=== PATIENT | male | born 1965 | race Caucasian/White ===

== ENCOUNTER 2017-03-28 08:46 | Emergency (ER) | payer SELFPAY ==
[2017-03-28 08:51] VITALS: BMI 49.2
--- NOTE | 2017-03-28 09:23 | PDOC ---
History of Present Illness - General Chief Complaint: Lightheaded Stated Complaint: NAUSEA/vertigo History Source: Patient Exam Limitations: No Limitations - History of Present Illness Initial Comments: 03/28/17 09:14 52-year-old male with history of alcoholic cirrhosis, gastritis, and obesity with sedentary lifestyle presents with complaints of intermittent dizziness for the past 3 days. 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 Patient denies chest pain, shortness of breath, visual changes, headache, nausea or weakness with episodes. Patient denies history of vertigo, denies recent head injury, recent dental work, recent illness, recent surgery. Patient denies alcohol or drug use presently. Patient also denies change in sleep pattern or diet. Presenting Symptoms: Dizziness Timing/Duration: reports: intermittent, resolved prior to arrival Severity/Quality: reports: moderate Prior Chest Pain/Cardiac Workup: reports: No prior chest pain Associated Symptoms: Yes: Dizziness (intermittent) Past History - Past Medical History Allergies/Adverse Reactions: Allergies Allergy/AdvReac Type Severity Reaction Status Date / Time No Known Allergies Allergy Verified 03/28/17 08:46 Home Medications: Ambulatory Orders Folic Acid - 1 mg PO DAILY 03/28/17 GI Disorders: Yes (gastritis) Liver Disease: Yes (cirrhosis) - Suicide/Smoking/Psychosocial Hx Smoking History: Never smoked Hx Alcohol Use: No Drug/Substance Use Hx: No Substance Use Type: Alcohol Patient Lives Alone: No Lives with/in: spouse/SO Review of Systems - Review of Systems Able to Perform ROS?: Yes Constitutional: No: Symptoms Reported HEENTM: No: Symptoms Reported Respiratory: No: Symptoms reported Cardiac (ROS): Yes: Lightheadedness ABD/GI: No: Symptoms Reported : No: Symptoms Reported Musculoskeletal: No: Symptoms Reported Integumentary: No: Symptoms Reported Neurological: Yes: Dizziness Endocrine: No: Symptoms Reported Hematologic/Lymphatic: No: Symptoms Reported *Physical Exam - Vital Signs Last Vital Signs Temp Pulse Resp BP Pulse Ox 98.3 F 72 18 113/65 100 03/28/17 13:11 03/28/17 13:11 03/28/17 13:11 03/28/17 13:11 03/28/17 13:11 - Physical Exam General Appearance: Yes: Nourished. No: Appropriately Dressed, Apparent Distress HEENT: positive: EOMI, FABIEN, TMs Normal, Pharynx Normal. negative: Pale Conjunctivae Neck: positive: Supple Respiratory/Chest: positive: Lungs Clear, Normal Breath Sounds. negative: Respiratory Distress, Accessory Muscle Use Cardiovascular: positive: Regular Rhythm, Regular Rate. negative: Murmur Gastrointestinal/Abdominal: positive: Soft. negative: Tenderness Integumentary: positive: Normal Color, Warm, Moist Neurologic: positive: Motor Strength 5/5 (ambulatory), Other (negative Hallpike' s) Heart Score/ECG Review - History History: Slightly suspicious - Electrocardiogram EKG: Normal - Age Age: 45-65 - Risk Factors Risk Factors Heart Score: Yes Hx Obesity Based on the list above the patient has:: 1-2 risk factors - Troponin Troponin: </= normal limit - Score Heart Score - Total: 2 - ECG Intrepretation Rhythm: Regular Rhythm (rate 77. Normal sinus rhythm. Intervals are regular) ED Treatment Course - LABORATORY CBC & Chemistry Diagram: 03/28/17 09:20 03/28/17 09:20 - ADDITIONAL ORDERS Additional order review: Laboratory Results 03/28/17 03/28/17 12:46 09:20 Sodium 139 Potassium 3.9 Chloride 109 H Carbon Dioxide 25 Anion Gap 5 L BUN 10 Creatinine 0.5 L D Creat Clearance w eGFR > 60 Random Glucose 101 Calcium 7.7 L Total Bilirubin 2.0 H AST 81 H ALT 66 Alkaline Phosphatase 173 H Creatine Kinase 436 H Creatine Kinase Index 1.7 CK-MB (CK-2) 7.715 H Troponin I < 0.02 Total Protein 7.2 Albumin 2.4 L Urine Color Yellow Urine Appearance Clear Urine pH 5.0 Urine Protein Negative Urine Glucose (UA) Negative Urine Ketones Negative Urine Blood 1+ H Urine Nitrite Negative Urine Bilirubin Negative Urine Urobilinogen Negative Urine RBC None Urine WBC 1 Ur Epithelial Cells Rare 03/28/17 09:20 RBC 4.49 MCV 102.8 H MCHC 33.8 RDW 14.5 MPV 8.2 Neutrophils % 61.5 Lymphocytes % 27.1 Monocytes % 9.0 Eosinophils % 2.0 Basophils % 0.4 - RADIOLOGY Radiology Studies Ordered: Category Date Time Status HEAD CT WITHOUT CONTRAST [CT] Stat CT Scan 03/28/17 09:18 Completed CHEST X-RAY PORTABLE* [RAD] Stat Radiology 03/28/17 09:19 Completed Medical Decision Making - Medical Decision Making 03/28/17 09:28 Patient complains of episodic dizziness stating he felt as if the room is spinning. Patient on exam had no acute findings but does have history of cirrhosis and gastritis. Patient be ordered for labs to rule out anemia, infection, ACS, and intracranial pathology. Patient ordered for cardiac including a head CT. Patient offered meclizine to states is currently asymptomatic. 03/28/17 10:47 Laboratory Tests 02/01/16 02/01/16 11/25/16 17:12 17:12 08:10 WBC 5.3 4.2 MCV 102.5 H 104.9 H MCH Plt Count 59 L D Sodium Potassium Chloride Creatinine Calcium Total Bilirubin 1.2 H AST 97 H ALT Alkaline Phosphatase 224 H Creatine Kinase 11/25/16 03/28/17 03/28/17 08:10 09:20 09:20 WBC 3.9 L MCV 102.8 H MCH 34.8 H Plt Count 54 L Sodium 139 Potassium 3.9 Chloride 109 H Creatinine 0.5 L D Calcium 7.7 L Total Bilirubin 2.0 H D 2.0 H AST 71 H D 81 H ALT 66 Alkaline Phosphatase 156 H D 173 H Creatine Kinase 436 H 03/28/17 10:47 Laboratory Tests 03/28/17 09:20 Troponin I < 0.02 03/28/17 11:19 Patient states has the appointment with a liver specialist at [facility] on April 12 as per recommendations from Dr. Dumont. Patient states has never seen a facilities specialist. Call placed to Dr. Weber. 03/28/17 13:09 Called and spoke to the office of Dr. Khan and made appointment for 9:45 AM on April 11. patient and made aware and will discharge home with recommendations to avoid infection and germs. 03/28/17 13:17 Laboratory Tests 03/28/17 12:46 Urine Ketones Negative Urine Blood 1+ H Urine Nitrite Negative Urine Urobilinogen Negative Urine WBC 1 *DC/Admit/Observation/Transfer Diagnosis at time of Disposition: Dizziness, Thrombocytopenia - Discharge Dispostion Disposition: HOME Condition at time of disposition: Good - Referrals Referrals: Rosalina Gomez NP [Primary Care Provider] - - Patient Instructions Printed Discharge Instructions: Platelet Count, Immune Support (Alternative Therapy) Additional Instructions: I have scheduled you an appointment on April 11 at 9:[address] Khan. If you have any questions in regards to your appointment please call [phone] and speak to Eloisa at extension [phone]. Print Language: [place]
[2017-03-28 09:48] LABS: BASOPHIL 0.4 % (0-2.0); MCH 34.8 pg (25.7-33.7); MCHC 33.8 g/dl (32.0-35.9); MEAN CELL VOLUME 102.8 fl (80-96); MEAN PLT VOLUME 8.2 fl (7.5-11.1); NEUTROPHILS 61.5 % (42.8-82.8); PLATELET COUNT 54 K/MM3 (134-434); RDW 14.5 % (11.9-15.9); WHITE BLOOD COUNT 3.9 K/mm3 (4.0-10.0)
[2017-03-28 10:09] LABS: ALBUMIN 2.4 g/dl (3.4-5.0); ANION GAP 5 (8-16); CALCIUM 7.7 mg/dL (8.5-10.1); CO2 25 mmol/L (21-32); CREATININE 0.5 mg/dL (0.7-1.3); GLUCOSE,RANDOM 101 mg/dL (74-106); SGOT/AST 81 U/L (15-37); SGPT/ALT 66 U/L (12-78); TOT PROT 7.2 g/dl (6.4-8.2)
[2017-03-28 10:11] LABS: ALK PHOS 173 U/L (45-117); CPK 436 IU/L (39-308); TROPONIN I < 0.02 ng/ml (0.00-0.05)
--- NOTE | 2017-03-28 11:43 | PDOC ---
*Physical Exam - Vital Signs Last Vital Signs Temp Pulse Resp BP Pulse Ox 98.9 F 84 18 128/74 100 03/28/17 08:48 03/28/17 09:20 03/28/17 08:48 03/28/17 09:20 03/28/17 08:48 ED Treatment Course - LABORATORY CBC & Chemistry Diagram: 03/28/17 09:20 03/28/17 09:20 - ADDITIONAL ORDERS Additional order review: Laboratory Results 03/28/17 09:20 Sodium 139 Potassium 3.9 Chloride 109 H Carbon Dioxide 25 Anion Gap 5 L BUN 10 Creatinine 0.5 L D Creat Clearance w eGFR > 60 Random Glucose 101 Calcium 7.7 L Total Bilirubin 2.0 H AST 81 H ALT 66 Alkaline Phosphatase 173 H Creatine Kinase 436 H Creatine Kinase Index 1.7 CK-MB (CK-2) 7.715 H Troponin I < 0.02 Total Protein 7.2 Albumin 2.4 L 03/28/17 09:20 RBC 4.49 MCV 102.8 H MCHC 33.8 RDW 14.5 MPV 8.2 Neutrophils % 61.5 Lymphocytes % 27.1 Monocytes % 9.0 Eosinophils % 2.0 Basophils % 0.4 Medical Decision Making - Medical Decision Making 03/28/17 11:41 Patient seen and evaluated with the nurse practitioner. I agree with the overall evaluation, assessment, and management with the following summary of visit: 52-year-old male with history of cirrhosis presents with subacute/ongoing complaints of transient episodes of what he describes as dizziness, more specifically there appeared to be episodes of diplopia requiring refocusing No associated ataxia or speech or focal motor disturbance. Exam as noted Labs has noted gradually worsening leukopenia but no evidence of neutropenia, baseline thrombocytopenia, otherwise baseline chemistries. CT head shows no acute pathology We'll discuss with primary physician expedited outpatient workup. Understands return criteria. No evidence for central neurologic process at this time. *DC/Admit/Observation/Transfer Diagnosis at time of Disposition: Dizziness
[2017-03-28 12:53] LABS: URINE APPEARANCE CLEAR; URINE BILIRUBIN NEGATIVE (NEGATIVE); URINE BLOOD 1+ (NEGATIVE); URINE COLOR YELLOW; URINE GLUCOSE (UA) NEGATIVE (NEGATIVE); URINE KETONE NEGATIVE (NEGATIVE); URINE LEUK ESTERASE NEGATIVE (NEGATIVE); URINE NITRITE NEGATIVE (NEGATIVE); URINE PROTEIN NEGATIVE (NEGATIVE); URINE UROBILINOGEN NEGATIVE mg/dL (0.2-1.0)
[2017-03-28 13:09] LABS: URINE WBC 1 /hpf (3-5)
[2017-03-28 13:14] VITALS: BP 113/65; PULSE 72; TEMP 98.3
--- NOTE | 2017-03-28 20:46 | EKG ---
Test Reason : Blood Pressure : / mmHG Vent. Rate : 077 BPM Atrial Rate : 077 BPM P-R Int : 132 ms QRS Dur : 094 ms QT Int : 418 ms P-R-T Axes : 011 002 -02 degrees QTc Int : 473 ms NORMAL SINUS RHYTHM RIGHT ATRIAL ABNORMALITY WHEN COMPARED WITH ECG OF 27-JAN-2016 15:28, NO SIGNIFICANT CHANGE WAS FOUND CLINICAL CORRELATION IS RECOMMENDED Confirmed by CURTIS TERRY MD ([id number]) on 03/28/2017 8:45:56 PM Referred By: Confirmed By:CURTIS TERRY MD
== END 2017-03-28 13:38 | disposition home or self-care (01) ==
LOC: JER 08:46
DX: D69.6 Thrombocytopenia, unspecified (principal); K29.70 Gastritis, unspecified, without bleeding; K70.30 Alcoholic cirrhosis of liver without ascites
CPT/HCPCS: 36415; 70450-TC; 71010-TC; 80053; 81003; 81015; 82553; 84484; 85025; 93005; 93010; 99284-25

== ENCOUNTER 2020-06-26 09:49 | Inpatient (IN) | payer OTHER ==
[2020-06-26] MEDS ORDERED: SPIRONOLACTONE 25 MG TABLET PO ONE (11:09)
[2020-06-26 12:09] LABS: BASO % 0.9 % (0-2.0); EOS % 1.2 % (0-4.5); HEMATOCRIT 42.7 % (35.4-49); HEMOGLOBIN 14.4 GM/dL (11.7-16.9); MCH 35.1 pg (25.7-33.7); MCHC 33.7 g/dl (32.0-35.9); MEAN CELL VOLUME 104.1 fl (80-96); MEAN PLT VOLUME 8.3 fl (7.5-11.1); MONO % 12.4 % (3.8-10.2); NEUT % 67.5 % (42.8-82.8); PLATELET COUNT 58 K/MM3 (134-434); RDW 13.7 % (11.9-15.9); WHITE BLOOD COUNT 4.8 K/mm3 (4.0-10.0)
[2020-06-26 12:26] LABS: ALBUMIN 2.2 g/dl (3.4-5.0); CALCIUM 7.4 mg/dL (8.5-10.1)
[2020-06-26 12:27] LABS: BLOOD UREA NITROGEN 10.4 mg/dL (7-18)
[2020-06-26 12:30] LABS: CREATININE 0.7 mg/dL (0.55-1.3)
[2020-06-26 12:31] LABS: BILIRUBIN,TOTAL 2.4 mg/dL (0.2-1); TOT PROT 6.1 g/dl (6.4-8.2)
[2020-06-26 12:34] LABS: N-TERMINAL BNP 77.9 pg/ml (5-125)
[2020-06-26] MEDS ORDERED: SPIRONOLACTONE 25 MG TABLET ONE (12:34)
[2020-06-26] MEDS ORDERED: LIDOCAINE HCL 2% (20ML MULTI-DOSE VIAL) ONE (14:31)
[2020-06-26 18:29] LABS: PH,URINE 7.5 (5.0-8.0); URINE APPEARANCE CLEAR; URINE BILIRUBIN NEGATIVE (NEGATIVE); URINE COLOR YELLOW; URINE GLUCOSE (UA) NEGATIVE (NEGATIVE); URINE KETONE TRACE (NEGATIVE); URINE LEUK ESTERASE NEGATIVE (NEGATIVE); URINE NITRITE NEGATIVE (NEGATIVE); URINE PROTEIN NEGATIVE (NEGATIVE)
[2020-06-26 19:22] LABS: BF WBC & OTHER NUCLEATED CELLS 283 /mm3
[2020-06-26 21:00] LABS: BODY FLUID MESOTHELIAL 2 %; BODY FLUID MONOCYTE 35 %
[2020-06-27 09:07] LABS: BASO % 0.2 % (0-2.0); EOS % 1.1 % (0-4.5); HEMATOCRIT 44.1 % (35.4-49); LYMPH % 17.3 % (8-40); MCH 35.3 pg (25.7-33.7); MEAN CELL VOLUME 103.9 fl (80-96); MEAN PLT VOLUME 8.3 fl (7.5-11.1); MONO % 10.5 % (3.8-10.2); NEUT % 70.9 % (42.8-82.8); PLATELET COUNT 60 K/MM3 (134-434); RBC 4.24 M/mm3 (4.00-5.60); RDW 14.2 % (11.9-15.9); WHITE BLOOD COUNT 4.3 K/mm3 (4.0-10.0)
[2020-06-27 09:15] LABS: ACTIVATED PTT 47.6 SECONDS (25.2-36.5)
[2020-06-27 09:16] LABS: INR 1.94 (0.83-1.09); PROTHROMBIN TIME (PATIENT) 23.4 SEC (9.7-13.0)
[2020-06-27] MEDS: SPIRONOLACTONE 25 MG TABLET PO SCH (09:34)
[2020-06-27] MEDS: THIAMINE HCL 200 MG/2 ML VIAL IM SCH (09:35)
[2020-06-27] MEDS: FUROSEMIDE 40 MG/4 ML INJECTABLE VIAL IVPUSH SCH (09:35)
[2020-06-27 09:40] LABS: POTASSIUM 3.8 mmol/L (3.5-5.1)
[2020-06-27 09:48] LABS: PHOSPHOROUS 3.3 mg/dL (2.5-4.9)
[2020-06-27 09:52] LABS: ALBUMIN 2.4 g/dl (3.4-5.0); BILIRUBIN,TOTAL 3.1 mg/dL (0.2-1); CALCIUM 7.8 mg/dL (8.5-10.1); MAGNESIUM 1.5 mg/dL (1.8-2.4); TOT PROT 6.3 g/dl (6.4-8.2)
[2020-06-27 09:55] LABS: CREATININE 0.6 mg/dL (0.55-1.3)
[2020-06-27] MEDS: RIFAXIMIN 550 MG TABLET (UD) PO SCH ×2 (13:58→21:43)
[2020-06-27] MEDS ORDERED: MAGNESIUM SULF 50% (8.12 MEQ/2 ML-1 GM VIAL) IVPB ONE (14:47)
[2020-06-27] MEDS: SILVER SULFADIAZINE 1% TOP CREAM 50 GM JAR TP SCH (18:38)
[2020-06-28 09:09] LABS: BASO % 0.3 % (0-2.0); EOS % 1.2 % (0-4.5); HEMATOCRIT 42.7 % (35.4-49); HEMOGLOBIN 14.1 GM/dL (11.7-16.9); LYMPH % 16.1 % (8-40); MCH 34.5 pg (25.7-33.7); MCHC 33.2 g/dl (32.0-35.9); MEAN CELL VOLUME 104.1 fl (80-96); MEAN PLT VOLUME 8.9 fl (7.5-11.1); MONO % 12.4 % (3.8-10.2); PLATELET COUNT 58 K/MM3 (134-434); RDW 13.8 % (11.9-15.9); WHITE BLOOD COUNT 4.4 K/mm3 (4.0-10.0)
[2020-06-28 09:13] LABS: INR 2.03 (0.83-1.09); PROTHROMBIN TIME (PATIENT) 24.1 SEC (9.7-13.0)
[2020-06-28] MEDS: FUROSEMIDE 40 MG/4 ML INJECTABLE VIAL IVPUSH SCH (09:26)
[2020-06-28] MEDS: THIAMINE HCL 200 MG/2 ML VIAL IM SCH (09:27)
[2020-06-28] MEDS: SPIRONOLACTONE 25 MG TABLET PO SCH (09:27)
[2020-06-28] MEDS: SILVER SULFADIAZINE 1% TOP CREAM 50 GM JAR TP SCH (09:27)
[2020-06-28] MEDS: RIFAXIMIN 550 MG TABLET (UD) PO SCH ×2 (09:27→21:29)
[2020-06-28 09:47] LABS: ALBUMIN 2.2 g/dl (3.4-5.0); BILIRUBIN,TOTAL 2.6 mg/dL (0.2-1); BLOOD UREA NITROGEN 12.2 mg/dL (7-18); CALCIUM 7.7 mg/dL (8.5-10.1); CREATININE 0.6 mg/dL (0.55-1.3); MAGNESIUM 1.6 mg/dL (1.8-2.4); PHOSPHOROUS 3.2 mg/dL (2.5-4.9); POTASSIUM 3.7 mmol/L (3.5-5.1); TOT PROT 5.8 g/dl (6.4-8.2)
[2020-06-28] MEDS ORDERED: MAGNESIUM SULF 50% (8.12 MEQ/2 ML-1 GM VIAL) IVPB ONE (12:47)
[2020-06-28] MEDS ORDERED: PHYTONADIONE 5 MG TABLET PO ONE (14:15)
[2020-06-28] MEDS ORDERED: PT OWN MED DRAWER 7, Y5N ONE ×2 (14:51→16:50)
[2020-06-29] MEDS ORDERED: PT OWN MED DRAWER 7, Y5N ONE (05:29)
[2020-06-29] MEDS ORDERED: PHYTONADIONE 5 MG TABLET PO ONE (07:00)
[2020-06-29 07:51] LABS: BASO % 0.4 % (0-2.0); EOS % 1.2 % (0-4.5); HEMATOCRIT 42.6 % (35.4-49); HEMOGLOBIN 14.5 GM/dL (11.7-16.9); LYMPH % 16.8 % (8-40); MCH 35.3 pg (25.7-33.7); MCHC 34.1 g/dl (32.0-35.9); MEAN CELL VOLUME 103.4 fl (80-96); MEAN PLT VOLUME 7.8 fl (7.5-11.1); MONO % 12.3 % (3.8-10.2); NEUT % 69.3 % (42.8-82.8); PLATELET COUNT 57 K/MM3 (134-434); RBC 4.12 M/mm3 (4.00-5.60); RDW 13.7 % (11.9-15.9); WHITE BLOOD COUNT 5.3 K/mm3 (4.0-10.0)
[2020-06-29 08:09] LABS: POTASSIUM 3.8 mmol/L (3.5-5.1)
[2020-06-29 08:16] LABS: ALBUMIN 2.2 g/dl (3.4-5.0); CALCIUM 7.5 mg/dL (8.5-10.1)
[2020-06-29 08:17] LABS: BLOOD UREA NITROGEN 13.5 mg/dL (7-18); MAGNESIUM 1.8 mg/dL (1.8-2.4)
[2020-06-29 08:20] LABS: CREATININE 0.6 mg/dL (0.55-1.3)
[2020-06-29 08:21] LABS: BILIRUBIN,TOTAL 2.2 mg/dL (0.2-1)
[2020-06-29 08:22] LABS: TOT PROT 5.8 g/dl (6.4-8.2)
[2020-06-29] MEDS ORDERED: MAGNESIUM SULF 50% (8.12 MEQ/2 ML-1 GM VIAL) IVPB ONE (08:30)
[2020-06-29 08:38] LABS: INR 1.91 (0.83-1.09)
[2020-06-29] MEDS: RIFAXIMIN 550 MG TABLET (UD) PO SCH ×2 (10:01→21:51)
[2020-06-29] MEDS: SILVER SULFADIAZINE 1% TOP CREAM 50 GM JAR TP SCH (10:02)
[2020-06-29] MEDS: THIAMINE HCL 100 MG TABLET (FP) PO SCH (10:02)
[2020-06-29] MEDS: SPIRONOLACTONE 25 MG TABLET PO SCH (10:02)
[2020-06-29] MEDS: FUROSEMIDE 40 MG/4 ML INJECTABLE VIAL IVPUSH SCH (10:02)
[2020-06-29 16:26] VITALS: BMI 50.1
[2020-06-29 17:55] LABS: HEMOGLOBIN 14.9 GM/dL (11.7-16.9); MCHC 33.9 g/dl (32.0-35.9); MEAN CELL VOLUME 103.3 fl (80-96); PLATELET COUNT 56 K/MM3 (134-434); RBC 4.26 M/mm3 (4.00-5.60); RDW 13.9 % (11.9-15.9); WHITE BLOOD COUNT 5.7 K/mm3 (4.0-10.0)
[2020-06-29 18:11] LABS: INR 1.72 (0.83-1.09); PROTHROMBIN TIME (PATIENT) 20.8 SEC (9.7-13.0)
[2020-06-30 08:31] LABS: HEMATOCRIT 42.6 % (35.4-49); HEMOGLOBIN 14.2 GM/dL (11.7-16.9); MCH 34.9 pg (25.7-33.7); MCHC 33.4 g/dl (32.0-35.9); MEAN CELL VOLUME 104.3 fl (80-96); MEAN PLT VOLUME 8.1 fl (7.5-11.1); PLATELET COUNT 49 K/MM3 (134-434); RBC 4.08 M/mm3 (4.00-5.60); RDW 13.7 % (11.9-15.9); WHITE BLOOD COUNT 4.7 K/mm3 (4.0-10.0)
[2020-06-30 08:35] LABS: INR 1.94 (0.83-1.09)
[2020-06-30 08:52] LABS: POTASSIUM 4.2 mmol/L (3.5-5.1)
[2020-06-30 09:00] LABS: BLOOD UREA NITROGEN 12.3 mg/dL (7-18); CALCIUM 7.4 mg/dL (8.5-10.1); MAGNESIUM 1.6 mg/dL (1.8-2.4)
[2020-06-30 09:03] LABS: CREATININE 0.6 mg/dL (0.55-1.3); PHOSPHOROUS 3.6 mg/dL (2.5-4.9)
[2020-06-30 09:04] LABS: BILIRUBIN,TOTAL 3.3 mg/dL (0.2-1); TOT PROT 5.4 g/dl (6.4-8.2)
[2020-06-30] MEDS: FUROSEMIDE 40 MG TABLET (FP) PO SCH (09:15)
[2020-06-30] MEDS: THIAMINE HCL 100 MG TABLET (FP) PO SCH (09:17)
[2020-06-30] MEDS: SPIRONOLACTONE 25 MG TABLET PO SCH (09:17)
[2020-06-30] MEDS: RIFAXIMIN 550 MG TABLET (UD) PO SCH ×2 (09:17→21:50)
[2020-06-30] MEDS: SILVER SULFADIAZINE 1% TOP CREAM 50 GM JAR TP SCH (09:18)
[2020-06-30] MEDS ORDERED: MAGNESIUM SULF 50% (8.12 MEQ/2 ML-1 GM VIAL) IVPB ONE ×2 (11:50→13:31)
[2020-06-30] MEDS ORDERED: MAGNESIUM SULFATE IN WATER 2 GM/50 ML IVPB IVPB ONE ×2 (12:00→13:45)
[2020-06-30 12:47] LABS: BF WBC & OTHER NUCLEATED CELLS 348 /mm3
[2020-06-30 12:56] LABS: BODY FLUID MACROPHAGES 18 %; BODY FLUID MESOTHELIAL 20 %; BODY FLUID MONOCYTE 11 %
[2020-06-30 14:07] LABS: BODY FLUID ALBUMIN 0.3 g/dL (Not Estab.)
[2020-06-30] MEDS ORDERED: cefTRIAXone SODIUM 1 GM VIAL ONE (19:06)
[2020-06-30] MEDS ORDERED: DEXTROSE 5%-WATER - 50 ML IVPB ONE (19:06)
[2020-06-30] MEDS: CEFTRIAXONE 1 GM in DEXTROSE 5%-WATER - 50 ML IVPB SCH (19:08)
[2020-07-01] MEDS ORDERED: DEXTROSE 5%-WATER - 50 ML IVPB ONE (08:47)
[2020-07-01] MEDS ORDERED: cefTRIAXone SODIUM 1 GM VIAL ONE (08:47)
[2020-07-01 08:50] LABS: HEMOGLOBIN 15.4 GM/dL (11.7-16.9); MCHC 33.5 g/dl (32.0-35.9); MEAN CELL VOLUME 104.6 fl (80-96); MEAN PLT VOLUME 8.2 fl (7.5-11.1); PLATELET COUNT 56 K/MM3 (134-434); WHITE BLOOD COUNT 4.8 K/mm3 (4.0-10.0)
[2020-07-01] MEDS: CEFTRIAXONE 1 GM in DEXTROSE 5%-WATER - 50 ML IVPB SCH (09:12)
[2020-07-01] MEDS: FUROSEMIDE 40 MG TABLET (FP) PO SCH (09:12)
[2020-07-01] MEDS: SPIRONOLACTONE 25 MG TABLET PO SCH (09:12)
[2020-07-01] MEDS: RIFAXIMIN 550 MG TABLET (UD) PO SCH ×2 (09:12→21:22)
[2020-07-01] MEDS: THIAMINE HCL 100 MG TABLET (FP) PO SCH (09:12)
[2020-07-01] MEDS: SILVER SULFADIAZINE 1% TOP CREAM 50 GM JAR TP SCH (09:13)
[2020-07-01 09:14] LABS: POTASSIUM 3.7 mmol/L (3.5-5.1)
[2020-07-01 09:16] LABS: ALBUMIN 2.2 g/dl (3.4-5.0); CALCIUM 7.8 mg/dL (8.5-10.1)
[2020-07-01 09:17] LABS: BLOOD UREA NITROGEN 11.6 mg/dL (7-18); MAGNESIUM 1.7 mg/dL (1.8-2.4)
[2020-07-01 09:20] LABS: CREATININE 0.6 mg/dL (0.55-1.3); PHOSPHOROUS 3.9 mg/dL (2.5-4.9)
[2020-07-01 09:21] LABS: BILIRUBIN,TOTAL 2.1 mg/dL (0.2-1); TOT PROT 5.9 g/dl (6.4-8.2)
[2020-07-01] MEDS ORDERED: MAGNESIUM 2GM/50ML STERILE WATER IVPB IVPB ONE (12:00)
[2020-07-01 13:07] LABS: BODY FLUID ALBUMIN <0.2 g/dL (Not Estab.)
[2020-07-01] MEDS ORDERED: METOLAZONE 2.5 MG TABLET (FP) PO SCH (14:15)
[2020-07-01] MEDS ORDERED: PT OWN MED DRAWER 7, Y5N ONE (16:06)
[2020-07-01] MEDS ORDERED: ALBUMIN HUMAN 25% 100 ML VIAL IVPB SCH (20:00)
[2020-07-01] MEDS ORDERED: FUROSEMIDE 40 MG/4 ML INJECTABLE VIAL IVPUSH SCH (21:00)
[2020-07-01 23:11] VITALS: BP 122/73; PULSE 92; TEMP 98.7
== END 2020-07-02 00:05 | disposition short-term general hospital (02) | DRG 264 ==
LOC: JER 09:49 → JERBED 16:12 → J8W 06-27 00:30
PROVIDERS: ADMIT Internal Medicine; ATTEND Internal Medicine
PROC: 0W9G3ZX Drainage of Peritoneal Cavity, Percutaneous Approach, Diagnostic (ICD-10-PCS; principal; 2020-06-29)
PROC: 0W9G3ZX Drainage of Peritoneal Cavity, Percutaneous Approach, Diagnostic (ICD-10-PCS; 2020-06-29)
PROC: 30233K1 Transfusion of Nonautologous Frozen Plasma into Peripheral Vein, Percutaneous Approach (ICD-10-PCS; 2020-06-29)
DX: K70.31 Alcoholic cirrhosis of liver with ascites (principal); E11.9 Type 2 diabetes mellitus without complications; E66.01 Morbid (severe) obesity due to excess calories; Z68.42 Body mass index [BMI] 45.0-49.9, adult; R74.01 Elevation of levels of liver transaminase levels; E83.42 Hypomagnesemia; D69.6 Thrombocytopenia, unspecified; F17.210 Nicotine dependence, cigarettes, uncomplicated; S81.802A Unspecified open wound, left lower leg, initial encounter; I89.8 Other specified noninfective disorders of lymphatic vessels and lymph nodes
CPT/HCPCS: 36415; 36430; 71045-TC-FY; 74018-TC-FY; 76700-TC; 76942-TC; 80053; 81003; 82042; 82150; 82465; 82945; 83615; 83735; 83880; 83986; 84100; 84157; 84478; 85025; 85027; 85610; 85730; 86850; 86900; 86901; 87070; 87075; 87086; 87102; 87116; 87205; 87206; 87210; 88108; 88305-TC; 93005; 93010; 99285-25; C9803; P9017; U0003

== ENCOUNTER 2021-01-31 09:48 | Emergency (ER) | payer OTHER ==
[2021-01-31 09:57] VITALS: BMI 38.7
[2021-01-31] MEDS ORDERED: DALBAVANCIN HCL 1,500 MG in DEXTROSE 5%-WATER - 500 ML IVPB ONE (10:26)
[2021-01-31] MEDS ORDERED: BACITRACIN 15 GM TUBE TOPICAL OINTMENT ONE (10:28)
[2021-01-31] MEDS ORDERED: BACITRACIN 15 GM TUBE TOPICAL OINTMENT TP ONE (10:40)
[2021-01-31] MEDS ORDERED: DALBAVANCIN HCL 500 MG VIAL (RESTRICTED TO ID ONLY) IVPB ONE (11:02)
[2021-01-31 11:16] LABS: BASO % 0.5 % (0-2.0); EOS % 0.9 % (0-4.5); HEMATOCRIT 45.4 % (35.4-49); HEMOGLOBIN 15.6 GM/dL (11.7-16.9); LYMPH % 22.5 % (8-40); MCH 35.8 pg (25.7-33.7); MCHC 34.3 g/dl (32.0-35.9); MEAN CELL VOLUME 104.2 fl (80-96); MEAN PLT VOLUME 7.7 fl (7.5-11.1); MONO % 9.7 % (3.8-10.2); NEUT % 66.4 % (42.8-82.8); PLATELET COUNT 59 10^3/uL (134-434); RBC 4.36 M/mm3 (4.00-5.60); RDW 13.8 % (11.9-15.9); WHITE BLOOD COUNT 3.3 K/mm3 (4.0-10.0)
[2021-01-31 11:21] LABS: ALBUMIN 2.8 g/dl (3.4-5.0); BLOOD UREA NITROGEN 14.4 mg/dL (7-18); CALCIUM 8.2 mg/dL (8.5-10.1)
[2021-01-31 11:25] LABS: CREATININE 0.6 mg/dL (0.55-1.3)
[2021-01-31 11:26] LABS: BILIRUBIN,TOTAL 2.2 mg/dL (0.2-1); TOT PROT 6.8 g/dl (6.4-8.2)
[2021-01-31 12:30] VITALS: BP 113/61; PULSE 68; TEMP 98
== END 2021-01-31 12:15 | disposition home or self-care (01) ==
LOC: JER 09:48
DX: S81.801A Unspecified open wound, right lower leg, initial encounter (principal); L03.115 Cellulitis of right lower limb
CPT/HCPCS: 36415; 80053; 85025; 99284-25; J0875

== ENCOUNTER 2021-03-31 18:06 | Emergency (ER) | payer OTHER ==
[2021-03-31 18:16] VITALS: BP 125/76; PULSE 105; TEMP 99.7; BMI 39.2
== END 2021-03-31 21:00 | disposition left against medical advice (07) ==
LOC: JER 18:06
DX: R31.9 Hematuria, unspecified (principal)
CPT/HCPCS: 99283-25

== ENCOUNTER 2021-04-01 09:42 | Emergency (ER) | payer OTHER ==
[2021-04-01 10:18] VITALS: TEMP 98.6; BMI 39.1
[2021-04-01 12:08] LABS: BASO % 0.2 % (0-2.0); EOS % 0.1 % (0-4.5); HEMATOCRIT 41.4 % (35.4-49); HEMOGLOBIN 14.3 GM/dL (11.7-16.9); MCH 36.2 pg (25.7-33.7); MCHC 34.6 g/dl (32.0-35.9); MEAN CELL VOLUME 104.8 fl (80-96); MEAN PLT VOLUME 8.4 fl (7.5-11.1); MONO % 8.6 % (3.8-10.2); NEUT % 84.1 % (42.8-82.8); RBC 3.95 M/mm3 (4.00-5.60); RDW 13.7 % (11.9-15.9); WHITE BLOOD COUNT 9.8 K/mm3 (4.0-10.0)
[2021-04-01 12:11] LABS: PLATELET COUNT 41 10^3/uL (134-434)
[2021-04-01 12:18] LABS: INR 1.98 (0.83-1.09); PROTHROMBIN TIME (PATIENT) 24.5 SEC (9.7-13.0)
[2021-04-01 12:21] LABS: ACTIVATED PTT 40.6 SECONDS (25.2-36.5)
[2021-04-01 12:24] LABS: EPI CELLS 5 /uL (0-25.1); HYALINE CASTS 4 /uL (0-3.1); PH,URINE 5.5 (5.0-8.0); URINE APPEARANCE TURBID; URINE BACTERIA >9,000 /uL (0-1359); URINE BILIRUBIN 2+ (NEGATIVE); URINE COLOR ORANGE; URINE GLUCOSE (UA) NEGATIVE (NEGATIVE); URINE KETONE NEGATIVE (NEGATIVE); URINE LEUK ESTERASE 3+ (NEGATIVE); URINE NITRITE POSITIVE (NEGATIVE); URINE PROTEIN 2+ (NEGATIVE); URINE WBC 2921 /uL (0-25.8)
[2021-04-01 12:35] LABS: CHLORIDE 103 mmol/L (98-107); SODIUM 134 mmol/L (136-145)
[2021-04-01 12:37] LABS: CALCIUM 7.8 mg/dL (8.5-10.1)
[2021-04-01 12:38] LABS: ALBUMIN 2.3 g/dl (3.4-5.0); ANION GAP 5 MMOL/L (8-16); BLOOD UREA NITROGEN 20.1 mg/dL (7-18); CO2 26 mmol/L (21-32); GLUCOSE,RANDOM 97 mg/dL (74-106)
[2021-04-01 12:41] LABS: CREATININE 0.8 mg/dL (0.55-1.3); SGOT/AST 50 U/L (15-37); SGPT/ALT 39 U/L (13-61)
[2021-04-01 12:42] LABS: BILIRUBIN,TOTAL 3.2 mg/dL (0.2-1)
[2021-04-01 12:44] LABS: ALK PHOS 125 U/L (45-117)
[2021-04-01] MEDS ORDERED: CEFTRIAXONE 1,000 MG in DEXTROSE 5%-WATER - 50 ML IVPB ONE (13:07)
[2021-04-01] MEDS ORDERED: CEFTRIAXONE 1 GM/50 ML BAG ONE (13:42)
[2021-04-01 13:45] LABS: URINE RBC 383 /uL (0-23.9); YEAST NEGATIVE (NEGATIVE)
[2021-04-01 14:59] VITALS: BP 101/62; PULSE 90
== END 2021-04-01 14:59 | disposition home or self-care (01) ==
LOC: JER 09:42
DX: R31.0 Gross hematuria (principal)
CPT/HCPCS: 36415; 80053; 81003; 82550; 82553; 84484; 85025; 85610; 85730; 86850; 86900; 86901; 87086; 87186; 93005; 93010; 99284-25

== ENCOUNTER 2021-10-30 09:06 | Emergency (ER) | payer OTHER ==
[2021-10-30 09:21] VITALS: BP 103/65; PULSE 82; TEMP 97.7; BMI 39.7
[2021-10-30] MEDS ORDERED: BACITRACIN 15 GM TUBE TOPICAL OINTMENT TP SCH (10:15)
== END 2021-10-30 11:07 | disposition home or self-care (01) ==
LOC: JERFT 09:06
DX: S80.811A Abrasion, right lower leg, initial encounter (principal); Y99.9 Unspecified external cause status
CPT/HCPCS: 99282-25

== ENCOUNTER 2022-11-29 22:08 | Emergency (ER) | payer OTHER ==
[2022-11-29 22:18] VITALS: BP 125/79; PULSE 108; RESP 18; TEMP 98.3; BMI 38.9
== END 2022-11-30 | disposition left against medical advice (07) ==
LOC: JER 22:08
DX: R53.1 Weakness (principal); R53.83 Other fatigue
CPT/HCPCS: 99281-25

== ENCOUNTER 2023-07-03 19:02 | Inpatient (IN) | payer OTHER ==
[2023-07-03 20:00] LABS: BASO % 0.5 % (0-2.0); EOS % 0.3 % (0-4.5); HEMATOCRIT 42.3 % (35.4-49); HEMOGLOBIN 14.9 GM/dL (11.7-16.9); LYMPH % 5.8 % (8-40); MCH 36.3 pg (25.7-33.7); MCHC 35.1 g/dl (32.0-35.9); MEAN CELL VOLUME 103.3 fl (80-96); MONO % 8.6 % (3.8-10.2); NEUT % 84.8 % (42.8-82.8); PLATELET COUNT 49 10^3/uL (134-434); RDW 15.4 % (11.9-15.9); WHITE BLOOD COUNT 6.1 K/mm3 (4.0-10.0)
[2023-07-03 20:06] LABS: INR 2.11 (0.83-1.09); PROTHROMBIN TIME (PATIENT) 24.3 SEC (9.7-13.0)
[2023-07-03 20:09] LABS: ACTIVATED PTT 40.6 SECONDS (25.2-36.5)
[2023-07-03 20:31] LABS: POTASSIUM 3.1 mmol/L (3.5-5.1)
[2023-07-03 20:32] LABS: CALCIUM 8.2 mg/dL (8.5-10.1)
[2023-07-03 20:33] LABS: ALBUMIN 2.3 g/dl (3.4-5.0); BLOOD UREA NITROGEN 17.8 mg/dL (7-18)
[2023-07-03 20:38] LABS: TOT PROT 7.4 g/dl (6.4-8.2)
[2023-07-03 20:51] LABS: URINE APPEARANCE CLEAR; URINE COLOR YELLOW
[2023-07-03 20:52] LABS: URINE BILIRUBIN NEGATIVE (NEGATIVE); URINE GLUCOSE (UA) NEGATIVE (NEGATIVE); URINE KETONE NEGATIVE (NEGATIVE); URINE NITRITE NEGATIVE (NEGATIVE); URINE PROTEIN NEGATIVE (NEGATIVE)
[2023-07-03 20:53] LABS: URINE LEUK ESTERASE NEGATIVE (NEGATIVE); URINE RBC 15-20 /uL (0-23.9); URINE WBC 0-3 /uL (0-25.8)
[2023-07-03 20:54] LABS: URINE BACTERIA NONE SEEN /uL (0-1359)
[2023-07-03 20:54] LABS: CREATININE 1.1 mg/dL (0.55-1.3)
[2023-07-03] MEDS ORDERED: LACTULOSE 20 GM/30 ML UDC (FOR ORAL USE ONLY) ONE (21:44)
[2023-07-03] MEDS ORDERED: POTASSIUM CHLORIDE ORAL LIQUID 20 MEQ/15 ML ONE (21:45)
[2023-07-03] MEDS: POTASSIUM CHLORIDE ORAL LIQUID 20 MEQ/15 ML PO ONE (21:47)
[2023-07-03] MEDS: LACTULOSE 20 GM/30 ML UDC (FOR ORAL USE ONLY) PO ONE (21:47)
[2023-07-03 23:20] LABS: MAGNESIUM 1.3 mg/dL (1.8-2.4)
[2023-07-03 23:24] LABS: PHOSPHOROUS 2.3 mg/dL (2.5-4.9)
[2023-07-03] MEDS ORDERED: MAGNESIUM SULFATE IN WATER 2 GM/50 ML IVPB IVPB ONE (23:35)
[2023-07-03] MEDS: MAGNESIUM SULF 50% (8.12 MEQ/2 ML-1 GM VIAL) IVPB ONE (23:41)
[2023-07-03] MEDS ORDERED: LACTULOSE 20 GM/30 ML UDC (FOR RECTAL USE ONLY) PR SCH (23:45)
[2023-07-03] MEDS ORDERED: LACTULOSE 20 GM/30 ML UDC (FOR ORAL USE ONLY) PO SCH (23:56)
[2023-07-04 02:49] LABS: PHENCYCLIDINE,URINE NEGATIVE (NEGATIVE); URINE BENZODIAZEPINES NEGATIVE (NEGATIVE)
[2023-07-04 02:50] LABS: METHADONE, UR NEGATIVE (NEGATIVE); OPIATES, URI NEGATIVE (NEGATIVE); URINE BARBITURATES NEGATIVE (NEGATIVE)
[2023-07-04 02:53] LABS: COCAINE, UR POSITIVE (NEGATIVE); URINE AMPHETAMINES NEGATIVE (NEGATIVE)
[2023-07-04] MEDS: LACTULOSE 20 GM/30 ML UDC (FOR RECTAL USE ONLY) PR ONE ×2 (04:17→13:41)
[2023-07-04 08:32] LABS: BASO % 0.6 % (0-2.0); EOS % 0.5 % (0-4.5); HEMATOCRIT 39.9 % (35.4-49); HEMOGLOBIN 13.7 GM/dL (11.7-16.9); MCH 35.7 pg (25.7-33.7); MCHC 34.4 g/dl (32.0-35.9); MEAN CELL VOLUME 103.7 fl (80-96); MEAN PLT VOLUME 7.2 fl (7.5-11.1); MONO % 15.6 % (3.8-10.2); NEUT % 67.3 % (42.8-82.8); PLATELET COUNT 46 10^3/uL (134-434); RBC 3.84 M/mm3 (4.00-5.60); RDW 15.5 % (11.9-15.9)
[2023-07-04 08:35] LABS: INR 2.18 (0.83-1.09); PROTHROMBIN TIME (PATIENT) 25.1 SEC (9.7-13.0)
[2023-07-04 09:00] LABS: MAGNESIUM 1.5 mg/dL (1.8-2.4)
[2023-07-04 09:03] LABS: PHOSPHOROUS 3.2 mg/dL (2.5-4.9)
[2023-07-04] MEDS ORDERED: LACTULOSE 20 GM/30 ML UDC (FOR ORAL USE ONLY) PO SCH (10:00)
[2023-07-04] MEDS ORDERED: PHYTONADIONE 5 MG TABLET PO SCH (10:00)
[2023-07-04] MEDS: LACTULOSE 20 GM/30 ML UDC (FOR ORAL USE ONLY) PO SCH ×2 (10:11→22:00)
[2023-07-04] MEDS: PANTOPRAZOLE 40 MG TABLET PO SCH (10:12)
[2023-07-04] MEDS: FUROSEMIDE 40 MG TABLET (FP) PO SCH (10:12)
[2023-07-04] MEDS: TAMSULOSIN HCL 0.4 MG CAP PO SCH (10:12)
[2023-07-04] MEDS: PHYTONADIONE 5 MG TABLET PO SCH (11:19)
[2023-07-04] MEDS: METOLAZONE 2.5 MG TABLET (FP) PO SCH (11:19)
[2023-07-04] MEDS: SPIRONOLACTONE 25 MG TABLET PO SCH (11:20)
[2023-07-04] MEDS: RIFAXIMIN 550 MG TABLET PO SCH (11:44)
[2023-07-04] MEDS: CEFTRIAXONE 1 GM in DEXTROSE 5%-WATER - 50 ML IVPB SCH (15:14)
[2023-07-04] MEDS: MAGNESIUM SULFATE IN WATER 2 GM/50 ML IVPB IVPB ONE (16:34)
[2023-07-04 16:55] LABS: POTASSIUM 3.1 mmol/L (3.5-5.1)
[2023-07-04 16:56] LABS: CALCIUM 8.7 mg/dL (8.5-10.1)
[2023-07-04 16:57] LABS: BLOOD UREA NITROGEN 15.2 mg/dL (7-18)
[2023-07-04] MEDS: POTASSIUM CHLORIDE ORAL LIQUID 20 MEQ/15 ML PO ONE (22:13)
[2023-07-05 10:52] LABS: ALBUMIN 2.2 g/dl (3.4-5.0); BILIRUBIN,DIRECT 0.8 mg/dL (0.0-0.2); BILIRUBIN,TOTAL 1.8 mg/dL (0.2-1); BLOOD UREA NITROGEN 17.1 mg/dL (7-18); CALCIUM 8.2 mg/dL (8.5-10.1); CREATININE 0.9 mg/dL (0.55-1.3); MAGNESIUM 1.5 mg/dL (1.8-2.4); TOT PROT 7.4 g/dl (6.4-8.2)
[2023-07-05] MEDS: KCL 10 MEQ IVPB 10 MEQ/100 ML INFUS.BAG IVPB SCH (11:51)
[2023-07-05] MEDS: MAGNESIUM 2GM/50ML STERILE WATER IVPB IVPB ONE (15:58)
[2023-07-05] MEDS: SPIRONOLACTONE 25 MG TABLET PO SCH (21:32)
[2023-07-06 07:42] LABS: HEMATOCRIT 42.1 % (35.4-49); HEMOGLOBIN 14.7 GM/dL (11.7-16.9); MCH 35.8 pg (25.7-33.7); MEAN CELL VOLUME 102.5 fl (80-96); MEAN PLT VOLUME 7.4 fl (7.5-11.1); PLATELET COUNT 51 10^3/uL (134-434); RDW 15.3 % (11.9-15.9); WHITE BLOOD COUNT 4.4 K/mm3 (4.0-10.0)
[2023-07-06 08:19] LABS: CHLORIDE 91 mmol/L (98-107); SODIUM 129 mmol/L (136-145)
[2023-07-06 08:42] LABS: ALBUMIN 2.2 g/dl (3.4-5.0); BLOOD UREA NITROGEN 20.1 mg/dL (7-18); CO2 28 mmol/L (21-32); CREATININE 0.9 mg/dL (0.55-1.3); GLUCOSE,RANDOM 115 mg/dL (74-106); SGOT/AST 50 U/L (15-37)
[2023-07-06 08:43] LABS: ALK PHOS 150 U/L (45-117); TOT PROT 7.1 g/dl (6.4-8.2)
[2023-07-06 08:44] LABS: ANION GAP 10 mmol/L (4-13); BILIRUBIN,TOTAL 1.6 mg/dL (0.2-1); CALCIUM 8.2 mg/dL (8.5-10.1); POTASSIUM 2.8 mmol/L (3.5-5.1); SGPT/ALT 39 U/L (13-61)
[2023-07-06 09:34] LABS: ANISOCYTOSIS 0; MACROCYTOSIS 1+
[2023-07-06] MEDS: POTASSIUM CHLORIDE ORAL LIQUID 20 MEQ/15 ML PO ONE (14:01)
[2023-07-06] MEDS: KCL 10 MEQ IVPB 10 MEQ/100 ML INFUS.BAG IVPB SCH (14:02)
[2023-07-06] MEDS: MAGNESIUM SULF 50% (8.12 MEQ/2 ML-1 GM VIAL) IVPB ONE (18:46)
[2023-07-07 10:52] LABS: POTASSIUM 3.3 mmol/L (3.5-5.1)
[2023-07-07 11:00] LABS: CALCIUM 7.9 mg/dL (8.5-10.1)
[2023-07-07 11:02] LABS: ALBUMIN 2.3 g/dl (3.4-5.0); BLOOD UREA NITROGEN 17.9 mg/dL (7-18); MAGNESIUM 1.6 mg/dL (1.8-2.4)
[2023-07-07 11:06] LABS: BILIRUBIN,TOTAL 2.4 mg/dL (0.2-1); TOT PROT 7.5 g/dl (6.4-8.2)
[2023-07-07] MEDS: NAPH,MB-DB/K PH,MBDB POWDER PACKET PO SCH (14:41)
[2023-07-07] MEDS: KCL 10 MEQ IVPB 10 MEQ/100 ML INFUS.BAG IVPB SCH (14:42)
[2023-07-07] MEDS: MAGNESIUM SULF 50% (8.12 MEQ/2 ML-1 GM VIAL) IVPB ONE (16:13)
[2023-07-07] MEDS: POTASSIUM CHLORIDE ORAL LIQUID 20 MEQ/15 ML PO ONE ×2 (16:51→16:54)
[2023-07-09 12:03] LABS: HEMATOCRIT 43.4 % (35.4-49); HEMOGLOBIN 15.3 GM/dL (11.7-16.9); MCH 36.2 pg (25.7-33.7); MCHC 35.2 g/dl (32.0-35.9); MEAN CELL VOLUME 102.7 fl (80-96); MEAN PLT VOLUME 7.6 fl (7.5-11.1); PLATELET COUNT 60 10^3/uL (134-434); RBC 4.22 M/mm3 (4.00-5.60); RDW 15.2 % (11.9-15.9); WHITE BLOOD COUNT 5.7 K/mm3 (4.0-10.0)
[2023-07-09 12:27] LABS: POTASSIUM 3.3 mmol/L (3.5-5.1)
[2023-07-09 12:37] LABS: ALBUMIN 2.4 g/dl (3.4-5.0); BLOOD UREA NITROGEN 19.7 mg/dL (7-18); CALCIUM 7.9 mg/dL (8.5-10.1)
[2023-07-09 12:40] LABS: CREATININE 0.9 mg/dL (0.55-1.3)
[2023-07-09 12:42] LABS: BILIRUBIN,TOTAL 2.5 mg/dL (0.2-1); TOT PROT 7.7 g/dl (6.4-8.2)
[2023-07-09 13:13] LABS: ANISOCYTOSIS 1+; MACROCYTOSIS 1+
[2023-07-10 10:10] LABS: HEMATOCRIT 43.4 % (35.4-49); HEMOGLOBIN 14.8 GM/dL (11.7-16.9); MCH 35.4 pg (25.7-33.7); MCHC 34.1 g/dl (32.0-35.9); MEAN CELL VOLUME 103.8 fl (80-96); MEAN PLT VOLUME 7.5 fl (7.5-11.1); PLATELET COUNT 55 10^3/uL (134-434); RBC 4.18 M/mm3 (4.00-5.60); RDW 15.1 % (11.9-15.9); WHITE BLOOD COUNT 4.9 K/mm3 (4.0-10.0)
[2023-07-10 10:29] LABS: POTASSIUM 3.1 mmol/L (3.5-5.1)
[2023-07-10 10:35] LABS: ALBUMIN 2.2 g/dl (3.4-5.0); BLOOD UREA NITROGEN 19.6 mg/dL (7-18)
[2023-07-10 10:38] LABS: CREATININE 0.8 mg/dL (0.55-1.3)
[2023-07-10 10:40] LABS: BILIRUBIN,TOTAL 3.2 mg/dL (0.2-1)
[2023-07-10 11:31] LABS: ANISOCYTOSIS 0; HELMET CELLS 0; HOWELL-JOLLY BODIES 0; MACROCYTOSIS 0; OVALOCYTE 0; ROULEAU 0; SICKELED CELLS 0; TARGET CELLS 0; TEAR DROP CELLS 0; TOXIC GRANULATION 0
[2023-07-10] MEDS: POTASSIUM CHLORIDE ORAL LIQUID 20 MEQ/15 ML PO ONE (14:57)
[2023-07-10] MEDS: KCL 10 MEQ IVPB 10 MEQ/100 ML INFUS.BAG IVPB SCH (14:58)
[2023-07-10 15:49] VITALS: BMI 35.4
[2023-07-11 09:47] LABS: POTASSIUM 3.2 mmol/L (3.5-5.1)
[2023-07-11 09:54] LABS: ALBUMIN 2.1 g/dl (3.4-5.0); CALCIUM 7.4 mg/dL (8.5-10.1)
[2023-07-11 09:55] LABS: BLOOD UREA NITROGEN 16.4 mg/dL (7-18)
[2023-07-11 09:58] LABS: CREATININE 0.9 mg/dL (0.55-1.3)
[2023-07-11 09:59] LABS: BILIRUBIN,TOTAL 2.1 mg/dL (0.2-1); TOT PROT 6.9 g/dl (6.4-8.2)
[2023-07-11 13:08] LABS: MAGNESIUM 1.4 mg/dL (1.8-2.4)
[2023-07-11 13:12] LABS: PHOSPHOROUS 3.1 mg/dL (2.5-4.9)
[2023-07-11] MEDS: POTASSIUM CHLORIDE ORAL LIQUID 20 MEQ/15 ML PO SCH (13:21)
[2023-07-11 14:13] VITALS: BP 101/60; PULSE 80; RESP 18; TEMP 97.5
== END 2023-07-11 16:05 | disposition home or self-care (01) | DRG 280 ==
LOC: JER 19:02 → JERBED 21:57 → J7W 07-04 02:55
PROVIDERS: ADMIT Internal Medicine
DX: K76.82 Hepatic encephalopathy (principal); K21.9 Gastro-esophageal reflux disease without esophagitis; K70.30 Alcoholic cirrhosis of liver without ascites; N40.0 Benign prostatic hyperplasia without lower urinary tract symptoms; D69.6 Thrombocytopenia, unspecified; E87.6 Hypokalemia; E83.42 Hypomagnesemia; E87.1 Hypo-osmolality and hyponatremia; N39.0 Urinary tract infection, site not specified; K29.70 Gastritis, unspecified, without bleeding; I73.9 Peripheral vascular disease, unspecified; F14.90 Cocaine use, unspecified, uncomplicated
CPT/HCPCS: 0241U-QW; 36415; 71046-TC-FY; 80048; 80053; 80076; 80307; 81003; 82140; 83605; 83735; 84100; 84484; 85025; 85610; 85730; 86850; 86900; 86901; 87086; 87186; 93005; 93010; 99285-25

== ENCOUNTER 2023-08-06 17:33 | Inpatient (IN) | payer OTHER ==
[2023-08-06] MEDS ORDERED: ONDANSETRON 4 MG/2 ML VIAL ONE (18:41)
[2023-08-06] MEDS ORDERED: FAMOTIDINE 20 MG/50 ML IVPB 20 MG/50 ML MG IVPB ONE (18:41)
[2023-08-06] MEDS: LACTATED RINGERS SOLUTION 1000 ML INFUS.BAG IV ONE (18:58)
[2023-08-06] MEDS: FAMOTIDINE 20 MG/50 ML IVPB 20 MG/50 ML MG IVPB ONE (18:58)
[2023-08-06] MEDS: ONDANSETRON 4 MG/2 ML VIAL IVPUSH ONE (18:58)
[2023-08-06 19:04] LABS: HEMATOCRIT 41.3 % (35.4-49); HEMOGLOBIN 14.3 GM/dL (11.7-16.9); MCH 36.6 pg (25.7-33.7); MCHC 34.6 g/dl (32.0-35.9); MEAN CELL VOLUME 105.7 fl (80-96); PH,URINE 5.5 (5.0-8.0); RBC 3.91 M/mm3 (4.00-5.60); RDW 14.8 % (11.9-15.9); URINE APPEARANCE CLEAR; URINE BILIRUBIN NEGATIVE (NEGATIVE); URINE COLOR YELLOW; URINE GLUCOSE (UA) NEGATIVE (NEGATIVE); URINE KETONE NEGATIVE (NEGATIVE); URINE LEUK ESTERASE NEGATIVE (NEGATIVE); URINE NITRITE NEGATIVE (NEGATIVE); URINE PROTEIN NEGATIVE (NEGATIVE)
[2023-08-06 19:09] LABS: ADD RBC MORPHOLOGY YES
[2023-08-06 19:11] LABS: INR 1.72 (0.83-1.09); PROTHROMBIN TIME (PATIENT) 19.8 SEC (9.7-13.0)
[2023-08-06 19:14] LABS: ACTIVATED PTT 39.3 SECONDS (25.2-36.5)
[2023-08-06 19:21] LABS: POTASSIUM 4.4 mmol/L (3.5-5.1)
[2023-08-06 19:23] LABS: ALBUMIN 2.6 g/dl (3.4-5.0); BLOOD UREA NITROGEN 21.3 mg/dL (7-18); CALCIUM 8.5 mg/dL (8.5-10.1); MAGNESIUM 1.8 mg/dL (1.8-2.4)
[2023-08-06 19:28] LABS: BILIRUBIN,TOTAL 1.8 mg/dL (0.2-1); TOT PROT 7.1 g/dl (6.4-8.2)
[2023-08-06 20:26] LABS: ANISOCYTOSIS 1+; MACROCYTOSIS 1+
[2023-08-06 20:28] LABS: MEAN PLT VOLUME 7.4 fl (7.5-11.1); PLATELET COUNT 55 10^3/uL (134-434)
[2023-08-06] MEDS ORDERED: LACTULOSE 20 GM/30 ML UDC (FOR ORAL USE ONLY) ONE (21:20)
[2023-08-06] MEDS: LACTULOSE 20 GM/30 ML UDC (FOR ORAL USE ONLY) PO ONE (21:26)
[2023-08-07] MEDS ORDERED: FUROSEMIDE 40 MG TABLET (FP) ONE (05:08)
[2023-08-07] MEDS: FUROSEMIDE 40 MG TABLET (FP) PO SCH (05:13)
[2023-08-07 06:28] LABS: HEMATOCRIT 39.2 % (35.4-49); HEMOGLOBIN 13.7 GM/dL (11.7-16.9); MCH 36.6 pg (25.7-33.7); MCHC 34.9 g/dl (32.0-35.9); MEAN CELL VOLUME 104.7 fl (80-96); MEAN PLT VOLUME 7.3 fl (7.5-11.1); PLATELET COUNT 50 10^3/uL (134-434); RBC 3.75 M/mm3 (4.00-5.60); RDW 14.2 % (11.9-15.9); WHITE BLOOD COUNT 4.8 K/mm3 (4.0-10.0)
[2023-08-07 06:32] LABS: POTASSIUM 4.2 mmol/L (3.5-5.1)
[2023-08-07 06:34] LABS: CALCIUM 8.2 mg/dL (8.5-10.1)
[2023-08-07 06:35] LABS: ALBUMIN 2.5 g/dl (3.4-5.0); BLOOD UREA NITROGEN 20.6 mg/dL (7-18); MAGNESIUM 1.6 mg/dL (1.8-2.4)
[2023-08-07 06:38] LABS: CREATININE 0.8 mg/dL (0.55-1.3)
[2023-08-07 06:39] LABS: BILIRUBIN,TOTAL 2.1 mg/dL (0.2-1); TOT PROT 6.5 g/dl (6.4-8.2)
[2023-08-07] MEDS ORDERED: NICOTINE 7 MG/24 HOURS TOPICAL PATCH TD ONE (09:16)
[2023-08-07] MEDS ORDERED: MAGNESIUM SULFATE IN WATER 2 GM/50 ML IVPB IVPB ONE (09:16)
[2023-08-07] MEDS: SODIUM CHLORIDE 1,000 ML IV SCH (09:29)
[2023-08-07] MEDS: PANTOPRAZOLE 40 MG TABLET PO SCH (09:29)
[2023-08-07] MEDS: MAGNESIUM SULF 50% (8.12 MEQ/2 ML-1 GM VIAL) IVPB ONE (09:30)
[2023-08-07] MEDS: LACTULOSE 20 GM/30 ML UDC (FOR ORAL USE ONLY) PO SCH (09:30)
[2023-08-07] MEDS: RIFAXIMIN 550 MG TABLET PO SCH (09:30)
[2023-08-07] MEDS: NICOTINE 7 MG/24 HOURS TOPICAL PATCH TD SCH (09:30)
[2023-08-07] MEDS: TAMSULOSIN HCL 0.4 MG CAP PO SCH (09:30)
[2023-08-07] MEDS ORDERED: SPIRONOLACTONE 25 MG TABLET PO SCH ×2 (10:00→22:00)
[2023-08-07] MEDS ORDERED: RIFAXIMIN 550 MG TABLET PO SCH (10:00)
[2023-08-07 10:10] LABS: ANISOCYTOSIS 1+; MACROCYTOSIS 1+
[2023-08-07] MEDS ORDERED: DIPHTH,PERTUSS(ACELL),TET 0.5 ML DISP.SYRIN IM ONE (10:10)
[2023-08-07] MEDS: CARVEDILOL 3.125 MG TABLET (FP) PO ONE ×2 (18:28→18:29)
[2023-08-07] MEDS: FUROSEMIDE 20 MG TABLET (FP) PO SCH (18:28)
[2023-08-07] MEDS: LACTULOSE 20 GM/30 ML UDC (FOR ORAL USE ONLY) PO ONE (19:26)
[2023-08-07] MEDS: CARVEDILOL 3.125 MG TABLET (FP) PO SCH (19:29)
[2023-08-08] MEDS: SODIUM CHLORIDE 1,000 ML IV SCH ×2 (01:28→14:00)
[2023-08-08] MEDS: PANTOPRAZOLE 40 MG TABLET PO SCH (06:36)
[2023-08-08 07:55] LABS: HEMOGLOBIN 13.6 GM/dL (11.7-16.9); MCH 36.8 pg (25.7-33.7); MCHC 34.8 g/dl (32.0-35.9); MEAN CELL VOLUME 105.9 fl (80-96); MEAN PLT VOLUME 7.3 fl (7.5-11.1); PLATELET COUNT 54 10^3/uL (134-434); RBC 3.68 M/mm3 (4.00-5.60); RDW 14.5 % (11.9-15.9); WHITE BLOOD COUNT 6.3 K/mm3 (4.0-10.0)
[2023-08-08 08:20] LABS: CALCIUM 8.1 mg/dL (8.5-10.1)
[2023-08-08 08:21] LABS: ALBUMIN 2.5 g/dl (3.4-5.0); BLOOD UREA NITROGEN 19.8 mg/dL (7-18)
[2023-08-08] MEDS: TAMSULOSIN HCL 0.4 MG CAP PO SCH (08:22)
[2023-08-08 08:24] LABS: BILIRUBIN,DIRECT 1.1 mg/dL (0.0-0.2); CREATININE 0.9 mg/dL (0.55-1.3)
[2023-08-08 08:25] LABS: BILIRUBIN,TOTAL 2.6 mg/dL (0.2-1)
[2023-08-08 08:26] LABS: TOT PROT 6.6 g/dl (6.4-8.2)
[2023-08-08] MEDS: RIFAXIMIN 550 MG TABLET PO SCH (09:12)
[2023-08-08] MEDS: LACTULOSE 20 GM/30 ML UDC (FOR ORAL USE ONLY) PO SCH ×2 (09:12→14:00)
[2023-08-08] MEDS: NICOTINE 7 MG/24 HOURS TOPICAL PATCH TD SCH (09:12)
[2023-08-08] MEDS ORDERED: SPIRONOLACTONE 25 MG TABLET PO SCH (10:00)
[2023-08-08] MEDS ORDERED: FUROSEMIDE 40 MG TABLET (FP) PO SCH (10:00)
[2023-08-08 10:03] LABS: MAGNESIUM 1.7 mg/dL (1.8-2.4)
[2023-08-08 10:05] LABS: PHOSPHOROUS 4.2 mg/dL (2.5-4.9)
[2023-08-08] MEDS: MAGNESIUM SULF 50% (8.12 MEQ/2 ML-1 GM VIAL) IVPB ONE (14:00)
[2023-08-08 20:33] LABS: POTASSIUM 3.7 mmol/L (3.5-5.1)
[2023-08-08 20:35] LABS: BLOOD UREA NITROGEN 16.6 mg/dL (7-18); CALCIUM 7.9 mg/dL (8.5-10.1)
[2023-08-08] MEDS: PHYTONADIONE 10 MG/1 ML AMP IVPB ONE (21:51)
[2023-08-09 08:37] LABS: BASO % 0.5 % (0-2.0); EOS % 0.9 % (0-4.5); HEMATOCRIT 38.7 % (35.4-49); HEMOGLOBIN 13.5 GM/dL (11.7-16.9); LYMPH % 14.7 % (8-40); MCH 36.7 pg (25.7-33.7); MCHC 34.8 g/dl (32.0-35.9); MEAN CELL VOLUME 105.2 fl (80-96); MEAN PLT VOLUME 7.4 fl (7.5-11.1); MONO % 13.1 % (3.8-10.2); NEUT % 70.8 % (42.8-82.8); PLATELET COUNT 49 10^3/uL (134-434); RBC 3.68 M/mm3 (4.00-5.60); RDW 14.4 % (11.9-15.9); WHITE BLOOD COUNT 5.3 K/mm3 (4.0-10.0)
[2023-08-09 08:38] LABS: INR 1.74 (0.83-1.09); PROTHROMBIN TIME (PATIENT) 20.1 SEC (9.7-13.0)
[2023-08-09 08:50] LABS: POTASSIUM 3.8 mmol/L (3.5-5.1)
[2023-08-09 08:57] LABS: CALCIUM 7.9 mg/dL (8.5-10.1)
[2023-08-09 08:58] LABS: ALBUMIN 2.4 g/dl (3.4-5.0); BLOOD UREA NITROGEN 14.3 mg/dL (7-18)
[2023-08-09 08:59] LABS: BILIRUBIN,TOTAL 2.2 mg/dL (0.2-1); CREATININE 0.8 mg/dL (0.55-1.3)
[2023-08-09 09:00] LABS: TOT PROT 6.5 g/dl (6.4-8.2)
[2023-08-09] MEDS: CEFTRIAXONE 1 GM in DEXTROSE 5%-WATER - 50 ML IVPB SCH (10:17)
[2023-08-09] MEDS ORDERED: FUROSEMIDE 40 MG TABLET (FP) PO SCH ×2 (14:39→15:25)
[2023-08-09] MEDS: FUROSEMIDE 20 MG TABLET (FP) PO SCH (14:56)
[2023-08-09] MEDS: SODIUM CHLORIDE 1,000 ML IV SCH (14:57)
[2023-08-09] MEDS: SPIRONOLACTONE 25 MG TABLET PO SCH (18:23)
[2023-08-10] MEDS: FUROSEMIDE 40 MG TABLET (FP) PO SCH (06:34)
[2023-08-10 07:39] LABS: HEMATOCRIT 38.7 % (35.4-49); HEMOGLOBIN 13.2 GM/dL (11.7-16.9); MCH 36.3 pg (25.7-33.7); MEAN CELL VOLUME 106.6 fl (80-96); MEAN PLT VOLUME 7.3 fl (7.5-11.1); PLATELET COUNT 54 10^3/uL (134-434); RBC 3.63 M/mm3 (4.00-5.60); RDW 14.7 % (11.9-15.9); WHITE BLOOD COUNT 6.3 K/mm3 (4.0-10.0)
[2023-08-10 07:43] LABS: INR 1.78 (0.83-1.09); PROTHROMBIN TIME (PATIENT) 20.5 SEC (9.7-13.0)
[2023-08-10 07:58] LABS: POTASSIUM 3.9 mmol/L (3.5-5.1)
[2023-08-10 08:03] LABS: ALBUMIN 2.3 g/dl (3.4-5.0); BLOOD UREA NITROGEN 18.3 mg/dL (7-18); CALCIUM 7.8 mg/dL (8.5-10.1)
[2023-08-10 08:06] LABS: CREATININE 0.9 mg/dL (0.55-1.3)
[2023-08-10 08:07] LABS: TOT PROT 6.2 g/dl (6.4-8.2)
[2023-08-10 08:08] LABS: BILIRUBIN,TOTAL 1.8 mg/dL (0.2-1)
[2023-08-10 09:45] LABS: ANISOCYTOSIS 0; MACROCYTOSIS 2+
[2023-08-10] MEDS: THIAMINE HCL 100 MG TABLET (FP) PO SCH (12:07)
[2023-08-10 14:29] LABS: RETICULOCYTES 3.23 % (0.5-1.5)
[2023-08-10 15:40] LABS: MAGNESIUM 1.7 mg/dL (1.8-2.4)
[2023-08-11 08:20] LABS: INR 1.83 (0.83-1.09); PROTHROMBIN TIME (PATIENT) 21.1 SEC (9.7-13.0)
[2023-08-11 08:29] LABS: HEMATOCRIT 35.5 % (35.4-49); MCH 38.1 pg (25.7-33.7); MCHC 36.6 g/dl (32.0-35.9); MEAN CELL VOLUME 104.1 fl (80-96); MEAN PLT VOLUME 7.3 fl (7.5-11.1); PLATELET COUNT 49 10^3/uL (134-434); RBC 3.41 M/mm3 (4.00-5.60); RDW 14.5 % (11.9-15.9); WHITE BLOOD COUNT 4.9 K/mm3 (4.0-10.0)
[2023-08-11 08:35] LABS: POTASSIUM 3.5 mmol/L (3.5-5.1)
[2023-08-11 08:41] LABS: ALBUMIN 2.2 g/dl (3.4-5.0); CALCIUM 7.8 mg/dL (8.5-10.1)
[2023-08-11 08:42] LABS: MAGNESIUM 1.7 mg/dL (1.8-2.4)
[2023-08-11 08:43] LABS: CREATININE 0.8 mg/dL (0.55-1.3); PHOSPHOROUS 3.4 mg/dL (2.5-4.9)
[2023-08-11 08:45] LABS: BILIRUBIN,TOTAL 1.8 mg/dL (0.2-1); TOT PROT 6.2 g/dl (6.4-8.2)
[2023-08-11 11:51] LABS: ANISOCYTOSIS 0; MACROCYTOSIS 1+
[2023-08-11] MEDS ORDERED: CEFAZOLIN SODIUM 2 GM VIAL ONE (12:17)
[2023-08-11] MEDS ORDERED: MAG HYDROX/AL HYDROX/SIMETH 30 ML UNIT-DOSE CUP PO SCH (13:00)
[2023-08-11] MEDS: MAG HYDROX/AL HYDROX/SIMETH 30 ML UNIT-DOSE CUP PO SCH (14:26)
[2023-08-11] MEDS: MAGNESIUM OXIDE 400 MG TABLET (FP) PO ONE (18:49)
[2023-08-11 18:55] VITALS: RESP 18
[2023-08-12 08:02] LABS: POTASSIUM 3.4 mmol/L (3.5-5.1)
[2023-08-12 08:09] LABS: HEMATOCRIT 38.2 % (35.4-49); HEMOGLOBIN 13.3 GM/dL (11.7-16.9); MCH 36.7 pg (25.7-33.7); MCHC 34.8 g/dl (32.0-35.9); MEAN CELL VOLUME 105.4 fl (80-96); MEAN PLT VOLUME 7.3 fl (7.5-11.1); PLATELET COUNT 51 10^3/uL (134-434); RBC 3.62 M/mm3 (4.00-5.60); RDW 14.6 % (11.9-15.9); WHITE BLOOD COUNT 4.4 K/mm3 (4.0-10.0)
[2023-08-12 08:37] LABS: ALBUMIN 2.3 g/dl (3.4-5.0); BLOOD UREA NITROGEN 17.2 mg/dL (7-18)
[2023-08-12 08:38] LABS: BILIRUBIN,TOTAL 2.2 mg/dL (0.2-1); CALCIUM 8.1 mg/dL (8.5-10.1); TOT PROT 6.5 g/dl (6.4-8.2)
[2023-08-12 08:39] LABS: MAGNESIUM 1.7 mg/dL (1.8-2.4)
[2023-08-12 08:40] LABS: CREATININE 0.8 mg/dL (0.55-1.3); PHOSPHOROUS 2.9 mg/dL (2.5-4.9)
[2023-08-12 10:25] LABS: ANISOCYTOSIS 0; HELMET CELLS 0; HOWELL-JOLLY BODIES 0; MACROCYTOSIS 0; OVALOCYTE 0; ROULEAU 0; SICKELED CELLS 0; TARGET CELLS 0; TEAR DROP CELLS 0; TOXIC GRANULATION 0
[2023-08-12] MEDS: MAGNESIUM SULF 50% (8.12 MEQ/2 ML-1 GM VIAL) IVPB ONE (15:31)
[2023-08-12] MEDS: POTASSIUM CHLORIDE ORAL LIQUID 20 MEQ/15 ML PO ONE (15:31)
[2023-08-12 16:36] VITALS: BMI 34.4
[2023-08-12 16:38] VITALS: BP 106/68; PULSE 82; TEMP 98.5
== END 2023-08-12 19:00 | disposition home or self-care (01) | DRG 280 ==
LOC: JER 17:33 → JERBED 18:56 → J7W 08-07 10:54 → J4W 08-07 20:49
PROVIDERS: ADMIT Internal Medicine; ATTEND Internal Medicine
PROC: 30233R1 Transfusion of Nonautologous Platelets into Peripheral Vein, Percutaneous Approach (ICD-10-PCS; 2023-08-11)
PROC: 0DB78ZX Excision of Stomach, Pylorus, Via Natural or Artificial Opening Endoscopic, Diagnostic (ICD-10-PCS; 2023-08-11)
PROC: 06L38CZ Occlusion of Esophageal Vein with Extraluminal Device, Via Natural or Artificial Opening Endoscopic (ICD-10-PCS; principal; 2023-08-11 14:00)
DX: K76.82 Hepatic encephalopathy (principal); K70.30 Alcoholic cirrhosis of liver without ascites; K76.6 Portal hypertension; E83.42 Hypomagnesemia; D69.6 Thrombocytopenia, unspecified; E87.1 Hypo-osmolality and hyponatremia; M54.9 Dorsalgia, unspecified; J44.9 Chronic obstructive pulmonary disease, unspecified; I85.00 Esophageal varices without bleeding; D64.9 Anemia, unspecified; I73.9 Peripheral vascular disease, unspecified; E80.6 Other disorders of bilirubin metabolism; F14.90 Cocaine use, unspecified, uncomplicated; N40.0 Benign prostatic hyperplasia without lower urinary tract symptoms; E86.0 Dehydration; K21.9 Gastro-esophageal reflux disease without esophagitis; F17.210 Nicotine dependence, cigarettes, uncomplicated; S00.432A Contusion of left ear, initial encounter; S60.211A Contusion of right wrist, initial encounter; W17.89XA Other fall from one level to another, initial encounter; Y92.098 Other place in other non-institutional residence as the place of occurrence of the external cause; Y99.9 Unspecified external cause status
CPT/HCPCS: 0241U-QW; 36415; 36430; 70450-TC; 71045-TC-FY; 72125-TC; 72170-TC-FY; 73070-TC-RT-FY; 73110-TC-RT-FY; 73130-TC-RT-FY; 74181-TC; 76705-TC; 80048; 80053; 80307; 81003; 82105; 82140; 82248; 82272; 82607; 82728; 82746; 82962; 83540; 83550; 83605; 83735; 84100; 84484; 85025; 85027; 85045; 85610; 85730; 86704; 86803; 86850; 86900; 86901; 87086; 87340; 87517; 88305-TC; 93005; 93010; 93971-TC; 97116-GP; 97162-GP; 99285-25; P9037

== ENCOUNTER 2023-09-08 02:56 | Inpatient (IN) | payer OTHER ==
[2023-09-08 03:13] VITALS: BMI 39.6
[2023-09-08] MEDS ORDERED: ACETAMINOPHEN INJECTION 100 ML IVPB ONE (04:16)
[2023-09-08] MEDS ORDERED: ONDANSETRON 4 MG/2 ML VIAL ONE (04:16)
[2023-09-08] MEDS ORDERED: FAMOTIDINE 20 MG/50 ML IVPB 20 MG/50 ML MG IVPB ONE (04:17)
[2023-09-08] MEDS: FAMOTIDINE 20 MG/50 ML IVPB 20 MG/50 ML MG IVPB ONE (04:23)
[2023-09-08] MEDS: ONDANSETRON 4 MG/2 ML VIAL IVPUSH ONE (04:23)
[2023-09-08] MEDS: ACETAMINOPHEN 1000 MG/100 ML BAG IVPB ONE (04:23)
[2023-09-08] MEDS ORDERED: morphine SULFATE 4 MG/ML VIAL ONE ×2 (04:34→11:33)
[2023-09-08] MEDS: morphine SULFATE 4 MG/ML VIAL IVPUSH ONE (04:41)
[2023-09-08 04:45] LABS: BASO % 0.3 % (0-2.0); EOS % 0.1 % (0-4.5); HEMOGLOBIN 14.3 GM/dL (11.7-16.9); LYMPH % 11.7 % (8-40); MCH 36.2 pg (25.7-33.7); MCHC 34.8 g/dl (32.0-35.9); MEAN PLT VOLUME 7.4 fl (7.5-11.1); MONO % 11.4 % (3.8-10.2); NEUT % 76.5 % (42.8-82.8); PLATELET COUNT 46 10^3/uL (134-434); RBC 3.94 M/mm3 (4.00-5.60); WHITE BLOOD COUNT 3.7 K/mm3 (4.0-10.0)
[2023-09-08 05:01] LABS: INR 1.85 (0.83-1.09); PROTHROMBIN TIME (PATIENT) 21.3 SEC (9.7-13.0)
[2023-09-08 05:04] LABS: ACTIVATED PTT 40.4 SECONDS (25.2-36.5)
[2023-09-08 06:00] LABS: CHLORIDE 102 mmol/L (98-107); SODIUM 131 mmol/L (136-145)
[2023-09-08 06:02] LABS: ALBUMIN 2.1 g/dl (3.4-5.0); CALCIUM 7.5 mg/dL (8.5-10.1)
[2023-09-08 06:03] LABS: BLOOD UREA NITROGEN 18.1 mg/dL (7-18); CO2 22 mmol/L (21-32); GLUCOSE,RANDOM 111 mg/dL (74-106)
[2023-09-08 06:05] LABS: CREATININE 0.8 mg/dL (0.55-1.3); SGOT/AST 156 U/L (15-37)
[2023-09-08 06:07] LABS: BILIRUBIN,TOTAL 2.4 mg/dL (0.2-1); TOT PROT 6.9 g/dl (6.4-8.2)
[2023-09-08 06:08] LABS: ALK PHOS 181 U/L (45-117)
[2023-09-08 06:11] LABS: ANION GAP 6 mmol/L (4-13); POTASSIUM 8.4 mmol/L (3.5-5.1); SGPT/ALT 45 U/L (13-61)
[2023-09-08 08:46] LABS: CHLORIDE 102 mmol/L (98-107); POTASSIUM 4.1 mmol/L (3.5-5.1); SODIUM 133 mmol/L (136-145)
[2023-09-08 08:48] LABS: ALBUMIN 2.1 g/dl (3.4-5.0); ANION GAP 9 mmol/L (4-13); BLOOD UREA NITROGEN 18.2 mg/dL (7-18); CALCIUM 7.4 mg/dL (8.5-10.1); CO2 21 mmol/L (21-32); GLUCOSE,RANDOM 131 mg/dL (74-106)
[2023-09-08 08:51] LABS: CREATININE 0.9 mg/dL (0.55-1.3); SGPT/ALT 34 U/L (13-61)
[2023-09-08 08:52] LABS: SGOT/AST 61 U/L (15-37)
[2023-09-08 08:53] LABS: BILIRUBIN,TOTAL 3.5 mg/dL (0.2-1); TOT PROT 6.3 g/dl (6.4-8.2)
[2023-09-08 08:54] LABS: ALK PHOS 180 U/L (45-117)
[2023-09-08] MEDS: morphine CARPU-JECT 4 MG/1 ML DISP.SYRIN IVPUSH ONE (11:36)
[2023-09-08] MEDS ORDERED: PIPERACILLIN/TAZOB 4.5 GM 4.5 GM/100 ML BAG IVPB ONE (11:49)
[2023-09-08] MEDS ORDERED: VANCOMYCIN 1 GRAM (PRE-DOCKED) 1,000 MG/250 ML BAG IVPB ONE (11:49)
[2023-09-08] MEDS: VANCOMYCIN 1,000 MG in DEXTROSE 5%-WATER - 250 ML IVPB ONE (11:50)
[2023-09-08] MEDS: PIPERACILLIN/TAZOB 4.5 GM 4.5 GM in DEXTROSE 5%-WATER 100 ML IVPB ONE (11:50)
[2023-09-08 12:52] LABS: URINE APPEARANCE CLEAR; URINE BILIRUBIN MODERATE (NEGATIVE); URINE COLOR ORANGE; URINE GLUCOSE (UA) NEGATIVE (NEGATIVE); URINE KETONE NEGATIVE (NEGATIVE)
[2023-09-08 12:53] LABS: PH,URINE 5.5 (5.0-8.0); URINE LEUK ESTERASE TRACE (NEGATIVE); URINE NITRITE POSITIVE (NEGATIVE); URINE PROTEIN TRACE (NEGATIVE)
[2023-09-08 12:55] LABS: EPI CELLS 6.8 /uL (0-25.1); HYALINE CASTS 1.02 /uL (0-3.1); URINE BACTERIA 1.9 /uL (0-1359); URINE RBC 54.9 /uL (0-23.9); URINE WBC 5.4 /uL (0-25.8)
[2023-09-08] MEDS ORDERED: ACETAMINOPHEN 325 MG TABLET (FP) PO PRN (17:06)
[2023-09-08] MEDS: LACTULOSE 20 GM/30 ML UDC (FOR ORAL USE ONLY) PO SCH (17:23)
[2023-09-08] MEDS: FLU VACCINE (FLULAVAL) PF 60 MCG/0.5 ML SYRINGE 2023-2024 IM ONE (17:29)
[2023-09-08] MEDS: PNEUMOC 20-VAL CONJ-DIP CRM/PF 0.5 ML SYRINGE IM ONE (17:31)
[2023-09-08 18:31] LABS: COCAINE, UR NEGATIVE (NEGATIVE); METHADONE, UR NEGATIVE (NEGATIVE); OPIATES, URI POSITIVE (NEGATIVE); PHENCYCLIDINE,URINE NEGATIVE (NEGATIVE); URINE AMPHETAMINES NEGATIVE (NEGATIVE); URINE BARBITURATES NEGATIVE (NEGATIVE); URINE BENZODIAZEPINES NEGATIVE (NEGATIVE)
[2023-09-08 19:51] VITALS: RESP 18
[2023-09-08] MEDS: RIFAXIMIN 550 MG TABLET PO SCH (21:11)
[2023-09-08] MEDS: SPIRONOLACTONE 25 MG TABLET PO SCH (21:11)
[2023-09-08] MEDS ORDERED: SPIRONOLACTONE 25 MG TABLET PO SCH (22:00)
[2023-09-08] MEDS ORDERED: LACTULOSE 20 GM/30 ML UDC (FOR ORAL USE ONLY) PO SCH (22:00)
[2023-09-08] MEDS ORDERED: HEPARIN NA (PORCINE) 5,000 UNITS/ML 1ML VIAL SQ SCH (22:00)
[2023-09-09] MEDS: PANTOPRAZOLE 40 MG TABLET PO SCH (06:03)
[2023-09-09] MEDS ORDERED: PANTOPRAZOLE 40 MG TABLET PO SCH (07:00)
[2023-09-09 08:36] LABS: INR 2.08 (0.83-1.09); PROTHROMBIN TIME (PATIENT) 23.9 SEC (9.7-13.0)
[2023-09-09 08:55] LABS: POTASSIUM 4.7 mmol/L (3.5-5.1)
[2023-09-09 08:59] LABS: ALBUMIN 2.2 g/dl (3.4-5.0); BLOOD UREA NITROGEN 30.2 mg/dL (7-18); CALCIUM 8.1 mg/dL (8.5-10.1)
[2023-09-09 09:00] LABS: MAGNESIUM 1.2 mg/dL (1.8-2.4)
[2023-09-09 09:02] LABS: CREATININE 1.6 mg/dL (0.55-1.3); PHOSPHOROUS 5.1 mg/dL (2.5-4.9)
[2023-09-09 09:04] LABS: BILIRUBIN,TOTAL 4.5 mg/dL (0.2-1); TOT PROT 6.6 g/dl (6.4-8.2)
[2023-09-09] MEDS: TAMSULOSIN HCL 0.4 MG CAP PO SCH (09:36)
[2023-09-09 09:37] LABS: HEMATOCRIT 42.4 % (35.4-49); HEMOGLOBIN 14.6 GM/dL (11.7-16.9); MCH 35.9 pg (25.7-33.7); MCHC 34.5 g/dl (32.0-35.9); MEAN CELL VOLUME 104.2 fl (80-96); MEAN PLT VOLUME 7.6 fl (7.5-11.1); PLATELET COUNT 107 10^3/uL (134-434); RBC 4.07 M/mm3 (4.00-5.60); RDW 14.1 % (11.9-15.9); WHITE BLOOD COUNT 21.3 K/mm3 (4.0-10.0)
[2023-09-09] MEDS ORDERED: CEFTRIAXONE 2 GM-D5W BAG 2 GM/50 ML BAG IVPB SCH (10:00)
[2023-09-09] MEDS: SULFAMETHOXAZOLE/TRIMETHOPRIM 800MG/160MG D.S. TABLET PO SCH (11:22)
[2023-09-09] MEDS: MAGNESIUM 2GM/50ML STERILE WATER IVPB IVPB ONE (11:39)
[2023-09-09] MEDS: PIPERACILLIN/TAZOB 3.375 GM 3.375 GM in DEXTROSE 5%-WATER - 50 ML IVPB SCH ×2 (12:13→18:29)
[2023-09-09] MEDS ORDERED: oxyCODONE HCL 5 MG TABLET PO PRN (12:29)
[2023-09-09 12:54] VITALS: TEMP 98.7
[2023-09-09 17:00] VITALS: PULSE 104
[2023-09-09] MEDS ORDERED: PIPERACILLIN/TAZOB 3.375 GM 3.375 GM in DEXTROSE 5%-WATER - 50 ML IVPB SCH (18:00)
[2023-09-09 18:54] VITALS: BP 108/72
== END 2023-09-09 19:00 | disposition short-term general hospital (02) ==
LOC: JER 02:56 → JERBED 11:51 → J6S 14:24
PROVIDERS: ADMIT Internal Medicine; ATTEND Internal Medicine
DX: K81.0 Acute cholecystitis (principal); K82.A2 Perforation of gallbladder in cholecystitis; D68.9 Coagulation defect, unspecified; I85.10 Secondary esophageal varices without bleeding; K66.1 Hemoperitoneum; K76.6 Portal hypertension; D75.9 Disease of blood and blood-forming organs, unspecified; F17.210 Nicotine dependence, cigarettes, uncomplicated; I10 Essential (primary) hypertension; I73.9 Peripheral vascular disease, unspecified; J98.11 Atelectasis; K70.31 Alcoholic cirrhosis of liver with ascites; K76.82 Hepatic encephalopathy
CPT/HCPCS: 0241U-QW; 36415; 71045-TC-FY; 74177-TC; 76705-TC; 80053; 80307; 81003; 82140; 82248; 83605; 83690; 83735; 84100; 84484; 85025; 85027; 85610; 85730; 86850; 86900; 86901; 87040; 87086; 90677; 90686; 93005; 93010; 99285-25; G0008; J0131; Q9967